=== PATIENT | female | born 1995 | race Caucasian/White ===

== ENCOUNTER 2023-10-19 13:58 | Emergency (ER) | payer BC, SELFPAY ==
--- NOTE | ~2023-10-19 | US_ITS ---
EXAMINATION: US pelvic complete DATE: 10/19/2023 16:59 INDICATION: Hematuria and pelvic pain TECHNIQUE: Multiple transabdominal and endovaginal sonographic images of the pelvis were obtained. COMPARISON: None. FINDINGS: The uterus measures 7.6 x 3.7 x 4.4 cm. The endometrial complex measures 10 mm in thickness. The rig ht ovary measures 5.0 x 3.6 x 3.8 cm. Within the right ovary is a 3.3 x 2.9 x 2.1 cm hypoechoic lesio n with a few thin linear echogenic septations and without internal vascular flow on color Doppler whi ch is suggestive of a hemorrhagic cyst. The left ovary measures 2.5 x 2.1 x 2.5 cm. Best peripheral w ith arterial waveforms is identified at both ovaries on color Doppler. There is a small amount of lik ehsan physiologic free fluid in the pelvis along side the right ovary and uterine fundus. IMPRESSION: 1. 3.3 cm avascular appearing hypoechoic lesion within the right ovary with appearance most suggestiv e of a hemorrhagic cyst. Recommend 6-12 week follow-up pelvic ultrasound to document resolution. 2. Small amount of likely physiologic free fluid in the pelvis. Otherwise unremarkable pelvic ultraso und with vascular flow identified in both ovaries on color Doppler. Reviewed, dictated and finalized at location A. IMPRESSION: 1. 3.3 cm avascular appearing hypoechoic lesion within the right ovary with yovany earance most suggestive of a hemorrhagic cyst. Recommend 6-12 week follow-up pe lvic ultrasound to document resolution. 2. Small amount of likely physiologic free fluid in the pelvis. Otherwise unrem arkable pelvic ultrasound with vascular flow identified in both ovaries on colo r Doppler.
--- NOTE | ~2023-10-19 | CT_ITS ---
EXAMINATION: CT abdomen pelvis wo con DATE: 10/19/2023 16:00 INDICATION: Hematuria. Epigastric pain with nausea and vomiting. TECHNIQUE: Computed tomography (CT) of the abdomen and pelvis was performed without intravenous contr ast. Automated exposure control and iterative reconstruction technique were employed. The dose-length product was 207.70 mGy-cm. COMPARISON: None FINDINGS: Discoid atelectasis at the basilar left lower lobe. Visualized inferior heart is normal. No pericardi al or pleural effusion. Liver, gallbladder, spleen, pancreas and bilateral adrenal glands are normal. Kidneys and ureters are normal with no urolithiasis, hydroureteronephrosis or perinephric/ureteral s tranding. Bowels including the appendix are normal. Bladder, anteverted uterus and left adnexa are un remarkable. 3 cm likely complex cystic structure at the right ovary with suggestion of subtle increas ed density posteriorly suggestive of a hemorrhagic cyst. Minimal likely physiologic free fluid in the cul-de-sac. No pathologically enlarged abdominal or pelvic lymphadenopathy. Mild lumbar levocurvatur e with mild spondylosis. IMPRESSION: 1. 3 cm lesion at the right ovary which appears complex cystic, potentially hemorrhagic cyst. Conside r pelvic ultrasound for further evaluation. 2. No urolithiasis or other acute intra-abdominal/pelvic process. Reviewed, dictated and finalized at location A. IMPRESSION: 1. 3 cm lesion at the right ovary which appears complex cystic, potentially hem orrhagic cyst. Consider pelvic ultrasound for further evaluation. 2. No urolithiasis or other acute intra-abdominal/pelvic process.
[2023-10-19 14:20] VITALS: BP 108/71; PULSE 135; RESP 20; TEMP 36.9; O2SAT 98
[2023-10-19 14:36] LABS: Basophils Percent Auto 0.2 % (0.2-1.2); Eosinophils Percent Auto 0.2 % (0-4.4); Hematocrit 41.7 % (37.0-47.0); Hemoglobin 13.5 g/dL (12.0-15.0); Immature Granulocyte Absolute 0.04 K/mm3 (0.00-0.031); Immature Granulocyte Percent A 0.4 % (0-0.5); Lymphocytes Absolute Auto 0.28 K/mm3 (0.9-3.2); Lymphocytes Percent Auto 2.7 % (18.3-44.2); Mean Corpuscular HGB Conc 32.4 g/dl (32-36); Mean Corpuscular Hemoglobin 29.3 pg (26-34); Mean Corpuscular Volume 90.7 fl (80-100); Mean Platelet Volume 11.7 fl (7.4-10.4); Monocytes Absolute Auto 0.4 K/mm3 (0.1-0.6); Monocytes Percent Auto 3.5 % (2.6-8.5); Neutrophils Absolute Auto 9.7 K/mm3 (1.3-6.7); Platelet Count Result 225 k/mm3 (150-375); Red Cell Distribution Width 12.4 % (11.5-14.5); White Blood Count 10.4 K/mm3 (4.5-10.0)
[2023-10-19 15:14] VITALS: BP 101/69; PULSE 99; RESP 19; O2SAT 99
[2023-10-19 15:32] LABS: Appearance Urine Cloudy (Clear); Bacteria Urine 2+ /hpf; Bilirubin Urine 1+ (Negative); Blood Urine 2+ (Negative); Color Urine Dark Yellow (Yellow); Glucose Urine UA Negative (Negative); Ketones Urine 1+ mg/dL (Negative); Leukocyte Esterase Ur Negative LEU/UL (Negative); Nitrate Urine Negative (Negative); Non Pathogenic Casts 0-2; Protein Urine Trace mg/dL (Negative); Specific Grav Ur 1.023 (1.001-1.035); Squamous Epithelial Cell Urine Moderate /hpf (Few); WBC Urine 0-5 /hpf (0-3)
[2023-10-19] MEDS: ONDANSETRON INJ 4 MG/2 ML VIAL IV PUSH ×2 (15:33→18:49)
[2023-10-19] MEDS: SODIUM CHLORIDE 0.9% IV 1,000 ML 999 ML IV CONT (15:33)
[2023-10-19] MEDS: HYDROmorphone HCL INJ (*CRX) 1 MG/ML SYR 0.5 MG IV PUSH (15:33)
[2023-10-19 15:36] LABS: Add Urine Microscopic? YES
--- NOTE | 2023-10-19 15:46 | ED.GENADULT ---
HPI - General Adult General Chief complaint: Nausea/Vomiting/Diarrhea Stated complaint: vomiting/diarrhea/abd pain Time Seen by Provider: 10/19/23 14:46 History of Present Illness HPI narrative: 28-year-old female present to the emergency department for evaluation of persistent nausea vomiting diarrhea and abdominal pain. Patient states earlier this week she was diagnosed with urinary tract infection and she was started on Macrobid. Patient states since then she has had worsening symptoms. Related Data Allergies Allergy/AdvReac Type Severity Reaction Status Date / Time No Known Allergies Allergy Verified 10/19/23 15:20 Review of Systems Review of Systems: All systems reviewed & are unremarkable except as noted in HPI and below Exam Narrative: APPEARANCE: Well appearing, no pain, no distress, well-nourished. HEAD: normocephalic, atraumatic. EYES: PERRLA/EOMI, conjunctivae clear. NOSE: Normal no drainage EARS:TMS clear with good light reflex. THROAT: Pharynx clear, no exudate. NECK: Supple. No adenopathy, no masses. RESPIRATORY: Airway patent, respirations nonlabored. Clear to auscultation bilaterally, no rales, rhonchi, wheezing. CARDIOVASCULAR: Regular rate and rhythm without murmurs rubs or gallops. ABDOMINAL: Lower abdominal tenderness to palpation MUSCULOSKELETAL: Moves all extremities. Strength/ROM intact, No edema, No calf tenderness. NEURO: Alert. Cranial nerves II through XII intact. Good gait. Good coordination SKIN: Warm, dry. Normal Color Course Vital Signs Vital signs: Vital Signs Temperature 98.5 F 10/19/23 14:20 Pulse Rate 135 H 10/19/23 14:20 Respiratory Rate 20 10/19/23 14:20 Blood Pressure 108/71 10/19/23 14:20 Pulse Oximetry 98 10/19/23 14:20 Oxygen Delivery Room Air 10/19/23 14:20 Temperature 98.5 F 10/19/23 14:20 Pulse Rate 79 10/19/23 16:39 Respiratory Rate 17 10/19/23 16:39 Blood Pressure 107/69 10/19/23 16:39 Pulse Oximetry 100 10/19/23 16:39 Oxygen Delivery Room Air 10/19/23 15:14 Medical Decision Making [facility] Narrative Medical decision making narrative: 28-year-old female presents emergency department for evaluation of persistent nausea vomiting diarrhea and lower abdominal pain. Patient is afebrile with a minor leukocytosis of 10.4 stable hemoglobin. Patient had no significant electrolyte abnormalities. UA does have some bacteria but is nitrite negative. Patient is currently on Macrobid for urinary tract infection. CT scan was ordered due to the patient's persistent abdominal pain and was concerning for ovarian cyst. Ultrasound was ordered to evaluate for ovarian torsion and was negative. On re-evaluation patient states she is tolerating p.o. and does feel improved. Patient was advised to follow a clear liquid diet, Zofran for nausea control and patient is being provided [place] for additional pain control. Differential Diagnosis Differential Diagnosis: Colitis, diverticulitis, ovarian cyst, ovarian torsion, urinary tract infection Vital Signs Vital Signs: Vital Signs Temperature 98.5 F 10/19/23 14:20 Pulse Rate 135 H 10/19/23 14:20 Respiratory Rate 20 10/19/23 14:20 Blood Pressure 108/71 10/19/23 14:20 Pulse Oximetry 98 10/19/23 14:20 Oxygen Delivery Room Air 10/19/23 14:20 Temperature 98.5 F 10/19/23 14:20 Pulse Rate 79 10/19/23 16:39 Respiratory Rate 17 10/19/23 16:39 Blood Pressure 107/69 10/19/23 16:39 Pulse Oximetry 100 10/19/23 16:39 Oxygen Delivery Room Air 10/19/23 15:14 Lab Data Lab results reviewed: Yes I reviewed the patient's lab results. 10/19/23 14:28 10/19/23 15:49 Labs: Lab Results 10/19/23 10/19/23 10/19/23 Range/Units 14:28 15:22 15:49 WBC 10.4 H (4.5-10.0) K/mm3 RBC 4.60 (4.2-5.4) M/mm3 Hgb 13.5 (12.0-15.0) g/dL Hct 41.7 (37.0-47.0) % MCV 90.7 (80-100) fl MCH 29.3 (26-34) pg MCHC 32.4 (
[2023-10-19 16:05] LABS: Alanine Aminotransferase 18 U/L (6-35); Albumin Level 4.3 g/dL (3.5-5.1); Alkaline Phosphatase 68 U/L (38-126); Anion Gap 8 mmol/L (4-12); Aspartate Amino Transferase 20 U/L (14-36); Bilirubin,Total 0.9 mg/dL (0.2-1.3); Blood Urea Nitrogen 16 mg/dL (7-17); Carbon Dioxide 20 mmol/L (22-30); Chloride 111 mmol/L (98-107); Estimated CRCL calculation 118 ml/min; Estimated Glomerular Filt Rate > 60; Glucose 94 mg/dL (65-110); Lipase 54 U/L (23-300); Sodium 139 mmol/L (137-145)
[2023-10-19 16:39] VITALS: BP 107/69; PULSE 79; RESP 17; O2SAT 100
[2023-10-19] MEDS: HYDROcodone/acetaminophen (*CRX) 5-325 MG TABLET 1 TAB PO (18:50)
== END 2023-10-19 18:57 | disposition home or self-care (01) ==
PROVIDERS: Emergency Provider Emergency Medicine; PCP Family Medicine
DX: N83.201 Unspecified ovarian cyst, right side (principal); R11.2 Nausea with vomiting, unspecified
CPT/HCPCS: 36415; 74176; 76856; 80053; 81001; 81025; 83690; 85025; 96361; 96374; 96375; 96376; 99284; A9270; J1170; J2405; J7030

== ENCOUNTER 2024-11-22 08:01 | Emergency (ER) | payer SELFPAY ==
--- OUTSIDE RECORDS SUMMARY | 2024-11-22 08:05 | XMS_ITS | Clinical Summary ---
Author Organization [facility] Address [address] [place] [id number] Care Team Providers Care Heading Pinner Name Role Phone Rafaela Irizarry MD Unavailable [phone] Dora Fernandez MD Unavailable [phone] Elena Berry MD Primary Care Provider [phone] Allergies No known active allergies Medications venlafaxine 37.5 mg tablet extended release 24hr 24 hr tablet Take 1 tablet (37.5 mg total) by mouth daily Active lidocaine (LIDODERM) 5 % Place 1 patch on the skin daily Remove & discard patch within 12 hours or as directed by . 15 patch 05/09/2024 Active Active Problems Problem Noted Date Diagnosed Date Family history of breast cancer 02/25/2024 Surgical History Surgery Date Site/Laterality Comments LYMPH NODE DISSECTION Removed and biopsied WISDOM TOOTH EXTRACTION Family History Medical History Relation Name Comments Breast cancer Maternal Grandmother metast atic breast cancer Ovarian cancer Maternal cousin metastatic breast cancer Atypical Hyperplasia Mother Breast cancer Mother Atypical ducta l hyperplasia /double mastectomy Breast cancer Other Great Aunt on Mothers side/ metastatic BC/ Double mastectomy Relation Name Status Comments Maternal Grandmother Maternal cousin Mother Other Social History Tobacco Use Types Packs/Day Years Used Date Smoking Tobacco: Never Tobacco Cessation:Counseling Given: Not Answered AUDIT-C Answer Date Recorded Q1: How often do you have a drink containing alc ohol? Monthly or less 02/25/2024 Q2: How many drinks containi ng alcohol do you have on a typical day when you are drinking? 1 or 2 02/25/2024 Frequency of Binge Drinking Not on file 02/14 Personal Safety Answer Date Recorded Have you ever been in or are you currently in a harmful physical or emotional relationship or is someone making you feel afraid or unsafe? Denies 05/09/2024 Comments No Sex and Gender Information Value Date Recorded Sex Assigned at Not on file Legal Sex Female 4:07 PM CDT Gender Identity Not on file Sexual Orientation Not on file Obstetrics History Para Term AB IAB SAB Ectopic Multiple Livin g Live Births 0 0 0 Last Filed Vital Signs Vital Sign Reading Time Taken Comments Blood Pressure 100/73 05/09/2024 7:15 PM CHEMICAL PROCESS OPERATOR Pulse 74 05/09/2024 7:15 PM CHEMICAL PROCESS OPERATOR Temperature 36.2 C (97.1 F) 05/09/2024 4:07 PM CHEMICAL PROCESS OPERATOR Respiratory Rate 14 05/09/2024 7:00 PM CHEMICAL PROCESS OPERATOR Oxygen Saturation 98% 05/09/2024 7:15 PM CHEMICAL PROCESS OPERATOR Inhaled Oxygen Concentration - - Weight 54.4 kg (120 lb) 05/09/2024 4:08 PM CHEMICAL PROCESS OPERATOR Height 177.8 cm (5' 10) 05/07/2024 1:00 PM CHEMICAL PROCESS OPERATOR Body Mass Index 17.22 05/07/2024 1:00 PM CHEMICAL PROCESS OPERATOR Plan of Treatment Health Maintenance Due Date Last Done Comments Cervical Cancer Screening 1994 Depression Screening 1994 Hepatitis C Screening 1994 DTaP/Tdap/Td Vaccine (1 - Tdap) 2005 Varicella Vaccines (1 of 2 - 13+ 2-dose series) 2007 Hepatitis B Screening 2012 Regular Well Visit/Exam 18-64 2012 Influenza Vaccine (Season Ended) 2025 Breast Cancer Screening-Mammogram 03/18/2025 024 HPV Vaccines Aged Out No longer eligi ble based on patient's age to complete this topic Pneumococcal vaccine <65 Aged Out No longer eligible based on patient's age to complete this topic Procedures Procedure Name Priority Date/Time Associated Diagnosis Comments SCREENING MAMMOGRAM BILATERAL W CHRISTY Schedule Routine, Read Routine (OP Routine) 03/18/2024 8:37 AM CDT Breast cancer screening by mammogram from Last 3 Months or Most Recently Relevant to Health Maintenance Results * Screening Mammogram Bilateral W Christy (03/18/2024 8:37 AM CDT) Anatomical Region Laterality Modality Breast Bilateral Mammography Impressions 03/18/2024 9:20 AM CDT BI-RADS ATLAS category (overall): 1 - Negative There is no mammographic evidence of malignancy. A 1 year screening mammogram is recommended. Given the patient's reported family history of breast cancer, high risk assessment and possibly annual screening breast MRI are recommended. The patient has been or will be contacted. We recommend annual screening mammography for women at average risk of breast cancer beginning at age 40, based on guidelines of the [place] [employer] (ACR Practice Parameter for the Performance of Screening and Diagnostic Mammography) and [place] [employer]. For women with and elevated risk of breast cancer, please refer to the ACR Practice Parameter for specific screening recommendations. The patient will be entered into a reminder system with a target due date of 1 year for her next screening exam. Narrative 03/18/2024 9:20 AM CDT Screening Mammogram Bilateral W Christy: 03/18/24 The study was acquired using full field digital technology and interpreted from soft copy. 2D digital mammographic views, as well as 3D digital tomosynthesis were performed in the CC and MLO projections. CLINICAL: Breast cancer screening by mammogram. No relevant medical history has been documented for this patient. History of breast cancer in Mother, Maternal Grandmother, Other. COMPARISON: Baseline Screening Mammography. No prior mammography is available for comparison. BREAST TISSUE: The breasts are extremely dense, which lowers the sensitivity of mammography. FINDINGS: No suspicious masses, suspicious calcifications, or other suspicious findings are seen within either breast. Dora Fernandez MD IMG MAMMO PROCEDURES Final Result from Last 3 Months or Most Recently Relevant to Health Maintenance Insurance [facility] [employer] Care Teams Heading Pinner Relationship Specialty Start Date End Date Elena Berry MD [address] [place] [address] PCP - General Family Medicine 11/03/23 Rafaela Irizarry MD [address] [address] Referring Physician Gynecology 11/03/23 Dora Fernandez MD [address] [place] [address] Surgeon Medical Oncology 11/03/23
--- OUTSIDE RECORDS SUMMARY | 2024-11-22 08:05 | XMS_ITS | Referral Summary ---
Author Organization [facility] Address [facility] [place] [address] Care Team Providers Care Rate Analyst Name Role Phone Rafaela Irizarry MD Unavailable Dora Fernandez MD Unavailable [phone] Elena Berry MD Primary Care Provider [phone] Allergies No known active allergies Medications venlafaxine [...] Date Family history of breast cancer 02/25/2024 Social History Tobacco Use Types Packs/Day Years [...] on file Sexual Orientation Not on file Last Filed Vital Signs Vital Sign Reading Time Taken Comments Blood Pressure 100/73 05/09/2024 7:15 PM SECRETARIAL STENOGRAPHER Pulse 74 05/09/2024 7:15 PM SECRETARIAL STENOGRAPHER Temperature 36.2 C (97.1 F) 05/09/2024 4:07 PM SECRETARIAL STENOGRAPHER Respiratory Rate 14 05/09/2024 7:00 PM SECRETARIAL STENOGRAPHER Oxygen Saturation 98% 05/09/2024 7:15 PM SECRETARIAL STENOGRAPHER Inhaled Oxygen Concentration - - Weight 54.4 kg (120 lb) 05/09/2024 4:08 PM SECRETARIAL STENOGRAPHER Height 177.8 cm (5' 10) 05/07/2024 1:00 PM SECRETARIAL STENOGRAPHER Body Mass Index 17.22 05/07/2024 1:00 PM SECRETARIAL STENOGRAPHER Plan of Treatment Not on file Procedures Procedure Name Priority Date/Time Associated Diagnosis [...] age 40, based on guidelines of the [place] [employer] (ACR Practice Parameter for the Performance of Screening and Diagnostic Mammography) and [place] [employer]. For women [...] Most Recently Relevant to Health Maintenance Insurance [facility] [employer] Address: [address] [place] [address] Care Teams Rate Analyst Relationship Specialty Start Date End Date Elena Berry MD [address] [place] [address] PCP - General Family Medicine 11/03/23 Rafaela Irizarry MD [address] [place] [address] Referring Physician Gynecology 11/03/23 Dora Fernandez MD [address] [place] [address] Surgeon Medical Oncology 11/03/23
--- OUTSIDE RECORDS SUMMARY | 2024-11-22 08:05 | XMS_ITS | Patient Health Record ---
Author Organization [facility] Address [address] [place] [address] Care Team Providers Care Family Engagement Specialist Name Role Phone CAMILA RANDOLPH Unavailable [phone] Allergies No Known Allergies Reason For Referral No Information Medications Medication SIG (Take, Route, Frequency, Duration) Notes Start Date End Date Status Nitrofurantoin Monohyd Macro 100 MG 1 capsule Orally Twice a day for 7 days 03/09/2024 Active Social History Tobacco Use: Social History Observation Description Date Details (start date - stop date) Never Smoker NA - NA Tobacco Control (Standard) Question Answer Notes Tobacco use: Nonsmoker Vital Signs Height 69 in 03/09/2024 Patient Reported Normal Blood Pressure Patient Reported Normal Temperature Weight 120 lbs 03/09/2024 Patient Reported Normal Blood Pressure Patient Reported Normal Temperature BMI 17.72 kg/m2 03/09/2024 Patient Reported Normal Blood Pressure Patient Reported Normal Temperature Encounters Encounter Location Date Provider Diagnosis [facility] [address] [place] [address] 03/09/2024 CAMILA RANDOLPH Dysuria R30.0 Assessments Encounter Date Diagnosis (ICD Code) Assessment Notes Treatment Notes Treatment Clinical Notes Section Notes 03/09/2024 Dysuria (ICD-10 - R30.0) TREATMENT PLAN: MACROBID Patient presents with possible UTI symptoms without clear evidence of bloodstream infection. 1. Macrobid (nitrofurantoin ) 100mg every 12 hours for 5-7 days (avoid taking antibiotics for longer than this unless symptoms dont improve). 2. If interested, we can send pyridum (phenazopyridin e) for 2 days for urinary pain and bladder spasm relief. This will turn urine orange. Patient can also picking belt operator over the counter AZO which is a similar medicine (if not allergic). 3. Urinalysis and/or STD testing if risk factors exist. If symptoms dont improve, can obtain more testing and consider broader antibiotics. 4. Of note, all men should obtain a urinalysis and take the results to their PCP. UTIs in men are uncommon and require in-person followup and urinalysis. 5. Recommended to follow up in 3 days. If flank pain worsens, fevers begin and persist, bleeding begins or increases, or nausea/vomiting begin and you begin to feel more ill, go to ER. 03/09/2024 Other Follow the treatment plan as indicated by the provider. Take any medications as prescribed. If you have any questions about your prescription, ask the pharmacist. Call 911 anytime you think you may need emergency care. For example, call if:You have severe trouble breathing.You have a seizure.Call your doctor now or seek immediate medical care if:You have trouble breathing.You have a fever with a stiff neck or a severe headache.You have pain or pressure in your chest or belly.You have a fever or cough that returns after getting better.You feel very sleepy, dizzy, or confused.You are not urinating.You have severe muscle pain.You have severe weakness, or you are unsteady.You have medical conditions that are getting worse.Watch closely for changes in your health, and be sure to contact your doctor if:You do not get better as expected.You are having a problem with your medicine. You participated in a [employer] [facility] request, considered an asynchronous visit where you provide your symptoms and medical history, and a treatment plan is formulated based on your submission. A treatment plan and patient education were provided based on your submission. If symptoms persist or worsen, you should seek in-person care or call 911 immediately for further evaluation. Plan Of Treatment No Information Insurance Providers Payer Name Payer Address Payer Phone Subscriber Number Group Number Insured Name Patient Relationship to Insured Coverage Start Date Coverage End Date [facility] [address] [place] [phone] [id number] Alma Mathews Self - patient is the insured Medical (General) History Medical History History ICD Code DENIES MEDICAL HX
[2024-11-22 08:06] VITALS: BP 138/82; PULSE 81; RESP 16; O2SAT 100
[2024-11-22 08:08] VITALS: BP 138/82; PULSE 78; RESP 18; TEMP 36.6; O2SAT 100
--- NOTE | 2024-11-22 08:33 | ED_ITS ---
HPI - Back Pain/Injury General Chief Complaint: Back Pain/Injury Stated Complaint: back pain Time Seen by Provider: 11/22/24 08:24 Source: patient, RN notes reviewed and old records reviewed Mode of arrival: ambulatory Limitations: no limitations History of Present Illness HPI Narrative: This is a 29 year old who presents for evaluation of low back pain. Patient states she has history of sciatica but she is unsure if this back pain is due to sciatica. She reports bilateral lower back pain that is intermittent for 1 week. This pain is worse with movement and bending. She also states she went to urgent care and she was started on antibiotics. She is going through a divorce so she is concerned she may have UTI and an infection. She reports abnormal white curdish vaginal discharge. She denies nausea, vomiting, fever or abdominal pain. She denies dysuria. MD elicited complaint: back pain Onset (ago): day(s) (3) Timing: constant Quality: burning Location: lumbar spine Exacerbating factors: movement Associated symptoms: chills and dysuria Treatments prior to arrival: NSAIDS and acetaminophen Related Data Allergies Allergy/AdvReac Type Severity Reaction Status Date / Time No Known Allergies Allergy Verified 11/22/24 08:08 Review of Systems 2 Constitutional: Constitutional: Reports chills and Denies fever(s) Gastrointestinal: Gastrointestinal: Reports abdominal pain and Reports nausea Genitourinary: Genitourinary: Reports nocturia and Reports vaginal discharge Musculoskeletal: Musculoskeletal: Reports back pain [facility] Past Medical History Medical History Sciatica Anxiety Family History Family History Father Cancer Heart disease Depression Anxiety Mother Diabetes mellitus Depression Anxiety Cancer Thyroid disorder Grandparent Metastatic malignant neoplasm to breast Hypertension Cerebrovascular accident Grandparent Cancer Diabetes mellitus Social History Social History Smoking status: Never smoker Alcohol intake: current Alcohol use details: 1-2 drinks socially Substance use: never Substance use type: does not use Do You Feel Safe in your Home?: Yes Lack of Transportation: No Lack of Food: Never True Current Housing: I Have Housing Concerned About Future Housing: No Difficulty Paying Gas/Electric Bills: No Difficulty Paying for Meds: No Currently Unemployed: No Exam 2 Const: General: no acute distress and alert Orientation/consciousness: p atient oriented x3 HENMT: Head: normal to inspection Eyes: EOM: EOMs intact bilaterally Resp: Effort & Inspection: normal respiratory effort Auscultation: clear to auscultation bilaterally Cardio: Rate: regular rate Rhythm: regular rhythm Heart sounds: no murmurs GI: GI Palp: Yes Soft to palpation, No Tenderness to palpation present (GI) and No Guarding due to palpation present (GI) Auscultation: normal bowel sounds : General: Yes no CVA tenderness Speculum Exam - Vagina: abnormal vaginal discharge white Speculum Exam - Cervix: normal appearance of the cervix and Cervical os closed Bimanual exam- vagina & uterus: no cervical motion tenderness Bimanual Exam- Adnexa, other: no masses and No adnexal tenderness Back/Spine/Pelvis: Back: no CVA tenderness Skin: General skin exam: normal color Rashes: no rashes Wounds: no wounds Neuro: General: patient oriented x3 Cranial nerves: Yes Nystagmus not present Extrem: General: normal to inspection Psych: Mental Status: mental status grossly normal Affect: normal affect Attitude: cooperative Course Reevaluation(s) Reevaluation #1: Patient has no complaints. I discussed treatment plan. She was given diflucan 150 mg PO in ER and she will be discharged with metrogel for BV prescription. Date: 11/22/24 Time: 12:00 Vital Signs Vital signs: Vital Signs Pulse Rate 81 11/22/24 08:06 Respiratory Rate 16 11/22/24 08:06 Blood Pressure 138/82 11/22/24 08:06 Pulse Oximetry 100 11/22/24 08:06 Temperature 97.8 F 11/22/24 08:08 Pulse Rate 61 11/22/24 12:17 Respiratory Rate 15 11/22/24 12:17 Blood Pressure 109/77 11/22/24 12:17 Pulse Oximetry 100 11/22/24 12:17 MDM - Back Pain/Injury Differential Diagnosis Differential diagnosis: Likely lumbar radiculopathy, sciatica, strain of lumbar region, renal colic and pyelonephritis Medical Records Attestation: I reviewed the patient's medical records. Lab Data Attestation: I reviewed the patient's lab results. 11/22/24 08:46 11/22/24 08:46 Labs: Lab Results 11/22/24 11/22/24 11/22/24 Range/Units 08:35 08:36 08:46 WBC 8.8 (4.5-10.0) K/mm3 RBC 4.16 L (4.2-5.4) M/mm3 Hgb 11.6 L (12.0-15.0) g/dL Hct 37.6 (37.0-47.0) % MCV 90.4 (80-100) fl MCH 27.9 (26-34) pg MCHC 30.9 L (32-36) g/dl RDW 13.8 (11.5-14.5) % Plt Count 229 (150-375) k/mm3 MPV 12.1 H (7.4-10.4) fl Immature Gran % (Auto) 0.3 (0-0.5) % Neut % (Auto) 61.1 (45.5-73.1) % Lymph % (Auto) 30.2 (18.3-44.2) % [place] % (Auto) 7.3 (2.6-8.5) % Eos % (Auto) 0.6 (0-4.4) % Baso % (Auto) 0.5 (0.2-1.2) % Lymph # (Auto) 2.66 (0.9-3.2) K/mm3 [place] # (Auto) 0.6 (0.1-0.6) K/mm3 Eos # (Auto) 0.1 (0-0.3) K/mm3 Baso # (Auto) 0.0 (0.0-0.1) K/mm3 Abs Immat Gran (auto) 0.03 (0.00-0.031) K/mm3 Absolute Neuts (auto) 5.4 (1.3-6.7) K/mm3 Absolute Nucleated RBC 0.000 (0.0-0.012) K/mm3 Nucleated RBC % 0.0 (0.0-0.2) % Sodium 138 (137-145) mmol/L Potassium 4.0 (3.4-5.0) mmol/L Chloride 106 (98-107) mmol/L Carbon Dioxide 19 L (22-30) mmol/L Anion Gap 13 H (4-12) mmol/L BUN 13 (7-17) mg/dL Creatinine 0.65 L (0.7-1.0) mg/dL Estim Creat Clear Calc 87 ml/min Estimated GFR > 60 (59 - ) Glucose 77 (65-110) mg/dL Calcium 9.0 (8.4-10.2) mg/dL Total Bilirubin 0.7 (0.2-1.3) mg/dL AST 33 (14-36) U/L ALT 19 (6-35) U/L Alkaline Phosphatase 62 (38-126) U/L Total Protein 8.1 (6.3-8.2) g/dL Albumin 4.8 (3.5-5.1) g/dL Urine Color Yellow (Yellow) Urine Appearance Clear (Clear) Urine pH 6.0 (5.0-9.0) Ur Specific [place] 1.016 (1.001-1.035) Urine Protein Negative (Negative) mg/dL Urine Glucose (UA) Negative (Negative) mg/dL Urine Ketones 1+ H (Negative) mg/dL Ur Blood (Man) Negative (Negative) Urine Nitrate Negative (Negative) Urine Bilirubin Negative (Negative) Urine Urobilinogen 1.0 (<2.0) mg/dL Leukocyte Esterase Rfl Negative (Negative) GAVIN/UL POC Urine HCG, Qual Negative (Negative) C. trachomatis (PCR) (NOT DETECTE) N. gonorrhoeae (PCR) (NOT DETECTE) T. vaginalis (PCR) (NOT DETECTE) Bact Vaginosis Panel 11/22/24 Range/Units 10:15 WBC (4.5-10.0) K/mm3 RBC (4.2-5.4) M/mm3 Hgb (12.0-15.0) g/dL Hct (37.0-47.0) % MCV (80-100) fl MCH (26-34) pg MCHC (32-36) g/dl RDW (11.5-14.5) % Plt Count (150-375) k/mm3 MPV (7.4-10.4) fl Immature Gran % (Auto) (0-0.5) % Neut % (Auto) (45.5-73.1) % Lymph % (Auto) (18.3-44.2) % [place] % (Auto) (2.6-8.5) % Eos % (Auto) (0-4.4) % Baso % (Auto) (0.2-1.2) % Lymph # (Auto) (0.9-3.2) K/mm3 [place] # (Auto) (0.1-0.6) K/mm3 Eos # (Auto) (0-0.3) K/mm3 Baso # (Auto) (0.0-0.1) K/mm3 Abs Immat Gran (auto) (0.00-0.031) K/mm3 Absolute Neuts (auto) (1.3-6.7) K/mm3 Absolute Nucleated RBC (0.0-0.012) K/mm3 Nucleated RBC % (0.0-0.2) % Sodium (137-145) mmol/L Potassium (3.4-5.0) mmol/L Chloride (98-107) mmol/L Carbon Dioxide (22-30) mmol/L Anion Gap (4-12) mmol/L BUN (7-17) mg/dL Creatinine (0.7-1.0) mg/dL Estim Creat Clear Calc ml/min Estimated GFR (59 - ) Glucose (65-110) mg/dL Calcium (8.4-10.2) mg/dL Total Bilirubin (0.2-1.3) mg/dL AST (14-36) U/L ALT (6-35) U/L Alkaline Phosphatase (38-126) U/L Total Protein (6.3-8.2) g/dL Albumin (3.5-5.1) g/dL Urine Color (Yellow) Urine Appearance (Clear) Urine pH (5.0-9.0) Ur Specific T[place] (1.001-1.035) Urine Protein (Negative) mg/dL Urine Glucose (UA) (Negative) mg/dL Urine Ketones (Negative) mg/dL Ur Blood (Man) (Negative) Urine Nitrate (Negative) Urine Bilirubin (Negative) Urine Urobilinogen (<2.0) mg/dL Leukocyte Esterase Rfl (Negative) GAVIN/UL POC Urine HCG, Qual (Negative) C. trachomatis (PCR) Not detected (NOT DETECTE) N. gonorrhoeae (PCR) Not detected (NOT DETECTE) T. vaginalis (PCR) Not detected (NOT DETECTE) Bact Vaginosis Panel Pending Discharge Plan Discharge Clinical Impression: Vaginitis Qualifiers: Chronicity: acute Qualified Code(s): N76.0 - Acute vaginitis Low back pain Qualifiers: Chronicity: acute Patient Disposition: Home Condition: Stable Instructions: Antibiotic Form, Yeast Infection (ED), Acute Low Back Pain (ED), Vaginal Discharge (ED) Additional Instructions: Today you were evaluated for back pain . Your urine is negative for infection. I have given you medication for yeast infection and vaginal infection. Follow up with your primary care provider and OBGYN Patient Language: Yakut Prescriptions: New metronidazole 0.75 % gel 1 applic topical HS Qty: 45 0RF ibuprofen 600 mg tablet 600 mg PO TID PRN (Reason: pain) Qty: 14 0RF No Action venlafaxine 37.5 mg capsule,extended release 24hr 37.5 mg PO DAILY Qty: 30 0RF ergocalciferol (vitamin D2) 1,250 mcg (50,000 unit) capsule 1,250 mcg PO WEEKLY Qty: 14 1RF Follow-up/Referrals: Elena Berry MD [Primary Care Provider] -
[2024-11-22 08:37] LABS: BEDSIDEPREGUCG Negative (Negative)
[2024-11-22 08:42] LABS: Add Urine Microscopic? NO; Appearance Urine Clear (Clear); Bilirubin Urine Negative (Negative); Blood Urine Negative (Negative); Color Urine Yellow (Yellow); Glucose Urine UA Negative (Negative); Ketones Urine 1+ mg/dL (Negative); Leukocyte Esterase Ur Negative LEU/UL (Negative); Nitrate Urine Negative (Negative); Protein Urine Negative (Negative); Specific Grav Ur 1.016 (1.001-1.035)
[2024-11-22] MEDS: KETOROLAC 30 MG/ML VIAL (*BKC) 15 MG IV PUSH (08:47)
[2024-11-22] MEDS: ONDANSETRON INJ 4 MG/2 ML VIAL IV PUSH (08:47)
--- OUTSIDE RECORDS SUMMARY | 2024-11-22 08:55 | XMS_ITS | Referral Summary ---
Author Organization [facility] Address [facility] [place] [address] Care Team Providers Care Pet Resort Concierge Name Role Phone Rafaela Irizarry MD Unavailable [phone] Dora Fernandez MD Unavailable [phone] Elena Berry MD Primary Care Provider [phone] Allergies No known active allergies Medications venlafaxine [...] Comments Blood Pressure 100/73 05/09/2024 7:15 PM CHAMFERING MACHINE OPERATOR Pulse 74 05/09/2024 7:15 PM CHAMFERING MACHINE OPERATOR Temperature 36.2 C (97.1 F) 05/09/2024 4:07 PM CHAMFERING MACHINE OPERATOR Respiratory Rate 14 05/09/2024 7:00 PM CHAMFERING MACHINE OPERATOR Oxygen Saturation 98% 05/09/2024 7:15 PM CHAMFERING MACHINE OPERATOR Inhaled Oxygen Concentration - - Weight 54.4 kg (120 lb) 05/09/2024 4:08 PM CHAMFERING MACHINE OPERATOR Height 177.8 cm (5' 10) 05/07/2024 1:00 PM CHAMFERING MACHINE OPERATOR Body Mass Index 17.22 05/07/2024 1:00 PM CHAMFERING MACHINE OPERATOR Plan of Treatment Not on file Procedures [...] age 40, based on guidelines of the [employer] (ACR Practice Parameter for the Performance of Screening and Diagnostic Mammography) and [employer]. For women [...] Most Recently Relevant to Health Maintenance Insurance [facility] [employer] Address: [address] [place] [address] * Guarantor: Alma Andre Account Type Relation to Patient Date of Phone Billing Address Personal/Family Self 1995 [address] [facility] [place] [address] [place] [address] Care Teams Pet Resort Concierge Relationship Specialty Start Date End Date Elena Berry MD [address] [place] [address] PCP - General Family Medicine 11/03/23 Rafaela Irizarry MD [address] [facility] [address] [place] [address] Referring Physician Gynecology 11/03/23 Dora Fernandez MD [address] [place] [address] Surgeon Medical Oncology 11/03/23
--- OUTSIDE RECORDS SUMMARY | 2024-11-22 08:55 | XMS_ITS | Clinical Summary ---
Author Organization [facility] Address [address] [place] [id number] Care Team Providers Care Pack Press Operator Name Role Phone Rafaela Irizarry MD Unavailable [phone] Dora Fernandez MD Unavailable [phone] Elena Berry MD Primary Care Provider [phone] Allergies No known active allergies Medications venlafaxine [...] Comments Blood Pressure 100/73 05/09/2024 7:15 PM AQUATIC PERFORMER Pulse 74 05/09/2024 7:15 PM AQUATIC PERFORMER Temperature 36.2 C (97.1 F) 05/09/2024 4:07 PM AQUATIC PERFORMER Respiratory Rate 14 05/09/2024 7:00 PM AQUATIC PERFORMER Oxygen Saturation 98% 05/09/2024 7:15 PM AQUATIC PERFORMER Inhaled Oxygen Concentration - - Weight 54.4 kg (120 lb) 05/09/2024 4:08 PM AQUATIC PERFORMER Height 177.8 cm (5' 10) 05/07/2024 1:00 PM AQUATIC PERFORMER Body Mass Index 17.22 05/07/2024 1:00 PM AQUATIC PERFORMER Plan of Treatment Health Maintenance Due Date [...] age 39, based on guidelines of the [employer] (ACR Practice Parameter for the Performance of Screening and Diagnostic Mammography) and [employer]. For women [...] Most Recently Relevant to Health Maintenance Insurance [facility] [employer] Address: [address] [place] [address] Care Teams Pack Press Operator Relationship Specialty Start Date End Date Elena Berry MD [address] [place] [address] PCP - General Family Medicine 11/03/23 Rafaela Irizarry MD [address] [address] Referring Physician Gynecology 11/03/23 Dora Fernandez MD [address] [place] [address] Surgeon Medical Oncology 11/03/23
[2024-11-22 08:59] LABS: Basophils Percent Auto 0.5 % (0.2-1.2); Eosinophils Absolute Auto 0.1 K/mm3 (0-0.3); Eosinophils Percent Auto 0.6 % (0-4.4); Hematocrit 37.6 % (37.0-47.0); Hemoglobin 11.6 g/dL (12.0-15.0); Immature Granulocyte Absolute 0.03 K/mm3 (0.00-0.031); Immature Granulocyte Percent A 0.3 % (0-0.5); Lymphocytes Absolute Auto 2.66 K/mm3 (0.9-3.2); Lymphocytes Percent Auto 30.2 % (18.3-44.2); Mean Corpuscular HGB Conc 30.9 g/dl (32-36); Mean Corpuscular Hemoglobin 27.9 pg (26-34); Mean Corpuscular Volume 90.4 fl (80-100); Mean Platelet Volume 12.1 fl (7.4-10.4); Monocytes Absolute Auto 0.6 K/mm3 (0.1-0.6); Monocytes Percent Auto 7.3 % (2.6-8.5); Neutrophils Absolute Auto 5.4 K/mm3 (1.3-6.7); Neutrophils Percent Auto 61.1 % (45.5-73.1); Platelet Count Result 229 k/mm3 (150-375); Red Blood Count 4.16 M/mm3 (4.2-5.4); Red Cell Distribution Width 13.8 % (11.5-14.5); White Blood Count 8.8 K/mm3 (4.5-10.0)
[2024-11-22 09:10] LABS: Alanine Aminotransferase 19 U/L (6-35); Albumin Level 4.8 g/dL (3.5-5.1); Alkaline Phosphatase 62 U/L (38-126); Anion Gap 13 mmol/L (4-12); Aspartate Amino Transferase 33 U/L (14-36); Bilirubin,Total 0.7 mg/dL (0.2-1.3); Blood Urea Nitrogen 13 mg/dL (7-17); Carbon Dioxide 19 mmol/L (22-30); Chloride 106 mmol/L (98-107); Estimated CRCL calculation 87 ml/min; Estimated Glomerular Filt Rate > 60; Glucose 77 mg/dL (65-110); Sodium 138 mmol/L (137-145); Total Protein 8.1 g/dL (6.3-8.2)
[2024-11-22 10:39] VITALS: BP 111/76; PULSE 66; RESP 14; O2SAT 100
[2024-11-22 11:34] LABS: Trichomonas Vag PCR NOT DETECTED (NOT DETECTE)
[2024-11-22 11:56] LABS: Chlamydia trachomatis NOT DETECTED (NOT DETECTE); Neisseria gonorrhoeae PCR NOT DETECTED (NOT DETECTE)
[2024-11-22] MEDS: FLUCONAZOLE 150 MG TABLET PO (12:02)
[2024-11-22 12:17] VITALS: BP 109/77; PULSE 61; RESP 15; O2SAT 100
[2024-11-23 10:10] LABS: Bacterial Vaginosis NEGATIVE (NEGATIVE)
== END 2024-11-22 12:18 | disposition home or self-care (01) ==
PROVIDERS: Emergency Provider General Practice; PCP Family Medicine
DX: N76.0 Acute vaginitis (principal); M54.50 Low back pain, unspecified
CPT/HCPCS: 36415; 80053; 81003; 81025; 81513; 85025; 87070; 87491; 87591; 87661; 96374; 96375; 99284; A9270; J1885; J2405

== ENCOUNTER 2025-03-28 16:07 | Emergency (ER) | payer SELFPAY ==
[2025-03-28 16:37] VITALS: BP 108/81; PULSE 74; RESP 18; TEMP 36.5; O2SAT 100
--- NOTE | 2025-03-28 16:40 | ECG_ITS ---
Test Date: 2025-03-28 16:43:25 Measurements Intervals Stevenson Rate: 72 P: 53 [place]: 124 QRS: 83 QRSD: 86 T: 54 QT: 389 QTc: 426 Interpretive Statements SINUS RHYTHM BASELINE ARTIFACT- I, II, III, V3 NORMAL ECG No previous ECG available for comparison Electronically Signed On 03-28-2025 18:59:50 CDT by Kenji Zapata D.O.
--- NOTE | 2025-03-28 18:26 | PC.NURSE ---
Pt. alerted this RN that she is leaving. A&Ox4 with a steady gait.
== END 2025-03-28 18:26 | disposition left against medical advice (07) ==
PROVIDERS: Emergency Provider Student in an Organized Health Care Education/Training Program; PCP Family Medicine
DX: R07.9 Chest pain, unspecified (principal)
CPT/HCPCS: 93005; 99199